=== PATIENT | male | born 1955 | race Hispanic/Latino ===

== ENCOUNTER 2018-11-11 16:50 | Inpatient (IN) ==
[2018-11-11] MEDS ORDERED: KETOROLAC 15 MG/1 ML VIAL IVP ONE (17:11)
[2018-11-11] MEDS ORDERED: DEXAMETHASONE PF 10 MG/1 ML VIAL IVP ONE (17:13)
[2018-11-11] MEDS ORDERED: diphenhydrAMINE 50 MG/1 ML VIAL IVP ONE (17:13)
[2018-11-11] MEDS ORDERED: Magnesium Sulfate 2gm (Premix) 2 GM/50 ML BAG IV ONE (17:13)
[2018-11-11] MEDS ORDERED: Prochlorperazine Edisylate Inj 10mg/2ml vial IVP ONE (17:13)
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
[2018-11-11] MEDS ORDERED: LIDOCAINE HCL 2 % 10 ML JELLY URO-JECT TOPICAL PRN (17:21)
[2018-11-11 17:22] LABS: Hematocrit [HCT] 38.6 % (42.0-52.0); Hemoglobin [HGB] 13.5 g/dL (14.0-18.0); MEAN CORPUSCULAR HEMOGLOBIN 29.7 PG (27-31); MEAN PLATELET VOLUME 9.1 FL (7.4-12.2); RED BLOOD COUNT 4.54 10^6/uL (4.70-6.10)
[2018-11-11 17:32] LABS: BLOOD UREA NITROGEN 17 mg/dL (7-22); SERUM ALBUMIN 3.8 g/dL (3.5-4.8)
[2018-11-11 17:43] LABS: VENOUS PH 7.37 (7.32-7.42)
[2018-11-11 17:45] LABS: BAND NEUTROPHILS % 7 % (0-10); BASOPHILS % (MANUAL) 0 % (0-1); EOSINOPHILS % (MANUAL) 0 % (0-8); METAMYELOCYTES % 0 %; MONOCYTES % (MANUAL) 3 % (0-12); MYELOCYTES % 0 %; NEUTROPHILS % (MANUAL) 84 % (50-80); PLATELET MORPHOLOGY COMMENT NORMAL MORPHOLOGY (NORM); PROMYELOCYTES % 0 %; RBC MORPHOLOGY COMMENT NORMAL MORPHOLOGY (NORM); WBC MORPHOLOGY COMMENT NORMAL MORPHOLOGY (NORM)
[2018-11-11 17:55] LABS: BILIRUBIN,URINE NEGATIVE (NEG); CLARITY,URINE CLEAR (CLEAR); COLOR,URINE YELLOW (Y); GLUCOSE, URINE (UA) NEGATIVE (NEG); OCCULT BLOOD,URINE SMALL (NEG); PROTEIN,URINE NEGATIVE (NEG); UROBILINOGEN,URINE 0.2 EU/dL (0.2)
[2018-11-11 17:58] LABS: BACTERIA,URINE MODERATE; URINE SAMPLE TYPE CATH SPECIMEN
[2018-11-11 18:03] LABS: Erythrocyte Sediment Rate 13 MM/HR (0-15)
[2018-11-11] MEDS ORDERED: cefTRIAXone Inj 2 GM in Sodium Chloride 0.9% 100 ML IV ONE (18:17)
--- NOTE | 2018-11-11 18:26 | DI ---
CT Head WO Contrast,11/11/2018 5:13 PM: Clinical History: Headache Previous Exam: September 01, 2013 Findings: Multiple helically acquired CT images are obtained through the brain without contrast, and demonstrat e normal, symmetric ventricles and other CSF containing spaces. There is no mass, hemorrhage or midli ne shift. Surrounding soft tissue and osseous structures are unremarkable. Impression: No acute intracranial pathology.
--- NOTE | 2018-11-11 19:01 | DI ---
AP /LATERAL CHEST, 11/11/2018 6:17 PM : Clinical History: Fever. Previous Exam: 09/01/2013. Soft Tissues: No acute soft tissue abnormality. On the AP projection, the patient took a shallow insp iration. Bones: Normal. Heart: Normal heart. Lungs: No infiltrates. Effusion(s): None. Mediastinum: Normal mediastinum. Nodules: No pulmonary nodules. Reading: Normal chest x-ray.
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
[2018-11-11] MEDS ORDERED: fentaNYL Inj 100 MCG/2 ML VIAL IVP ONE (20:15)
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
[2018-11-11] MEDS ORDERED: LIDOCAINE W/ SODIUM BICARB 0.5 ML SYR SUBD PRN (21:29)
[2018-11-11] MEDS ORDERED: DOCUSATE 100 MG CAPSULE PO PRN (21:29)
[2018-11-11] MEDS ORDERED: CARISOPRODOL 350 MG TABLET PO SCH (21:29)
[2018-11-11] MEDS ORDERED: CALCIUM CARBONATE 500 MG (TUMS) CHEWABLE TABLET PO PRN (21:29)
[2018-11-11] MEDS ORDERED: HYDROcodone-APAP 5 MG -325 MG TABLET PO PRN (21:29)
[2018-11-11] MEDS ORDERED: traMADol 50 MG TABLET PO PRN (21:29)
[2018-11-11] MEDS ORDERED: ONDANSETRON 4 MG/2 ML VIAL IVP PRN (21:29)
[2018-11-11] MEDS ORDERED: oxyCODONE/APAP 10/325 Tab 1 EACH TAB PO SCH (21:29)
[2018-11-11] MEDS: Lactated Ringers 1,000 ML PRIMARY IV SCH (22:36)
[2018-11-11] MEDS: HEPARIN 5000 UNIT/1 ML SUBCUT SCH (22:36)
[2018-11-11] MEDS: KETOROLAC 30 MG/1 ML VIAL IVP PRN (22:37)
[2018-11-11] MEDS: CITALOPRAM 20 MG TABLET PO SCH (22:38)
[2018-11-11] MEDS: LISINOPRIL 10 MG TABLET PO SCH (22:38)
[2018-11-11] MEDS: ACETAMINOPHEN 325 MG TABLET PO PRN (22:55)
[2018-11-12] MEDS: KETOROLAC 30 MG/1 ML VIAL IVP PRN ×2 (04:58→12:49)
[2018-11-12] MEDS: HEPARIN 5000 UNIT/1 ML SUBCUT SCH (04:58)
[2018-11-12 05:46] LABS: BASOPHILS # (AUTO) 0 10*3/UL; BASOPHILS % (AUTO) 0 % (0-1); EOSINOPHILS # (AUTO) 0 10*3/UL; EOSINOPHILS % (AUTO) 0 % (0-8); Hematocrit [HCT] 38.1 % (42.0-52.0); Hemoglobin [HGB] 12.9 g/dL (14.0-18.0); LYMPHOCYTES # (AUTO) 0.66 10*3/uL; MEAN CORPUSCULAR HEMOGLOBIN 28.7 PG (27-31); MEAN CORPUSCULAR HGB CONC 33.9 g/dL (33-37); MEAN CORPUSCULAR VOLUME 84.7 FL (80-90); MEAN PLATELET VOLUME 9.7 FL (7.4-12.2); MONOCYTES # (AUTO) 1.18 10*3/UL (0.3-0.8); NEUTROPHILS % (AUTO) 93.4 % (50-80)
[2018-11-12 06:14] LABS: PLATELET MORPHOLOGY COMMENT NORMAL MORPHOLOGY (NORM); RBC MORPHOLOGY COMMENT NORMAL MORPHOLOGY (NORM); WBC MORPHOLOGY COMMENT NORMAL MORPHOLOGY (NORM)
[2018-11-12 06:37] LABS: BLOOD UREA NITROGEN 24 mg/dL (7-22); BUN/CREATININE RATIO 21.81 (6-20); SERUM ALBUMIN 3.3 g/dL (3.5-4.8)
[2018-11-12] MEDS ORDERED: TAMSULOSIN 0.4 MG CAPSULE PO SCH (09:00)
[2018-11-12] MEDS ORDERED: HYDROCHLOROTHIAZIDE 12.5 MG CAPSULE PO SCH (09:00)
[2018-11-12] MEDS: CITALOPRAM 20 MG TABLET PO SCH (09:06)
[2018-11-12] MEDS: LISINOPRIL 10 MG TABLET PO SCH (09:07)
[2018-11-12] MEDS: Lactated Ringers 1,000 ML PRIMARY IV SCH (09:08)
[2018-11-12] MEDS: ACETAMINOPHEN 325 MG TABLET PO PRN (09:58)
--- NOTE | 2018-11-12 10:44 | DI ---
EXAM: CT Abdomen and Pelvis With Intravenous Contrast CLINICAL HISTORY: ITS.REASON elevated psa, elevated white blood cell count Physician Notes: Tech Comments: TECHNIQUE: Axial computed tomography images of the abdomen and pelvis with intravenous contrast. COMPARISON: CT abdomen and pelvis 03/31/17 FINDINGS: Lung bases: Mild bibasilar lung atelectasis. Mediastinum: Moderate hiatal hernia. ABDOMEN: Liver: Unremarkable. No mass. Gallbladder and bile ducts: Cholecystectomy. No ductal dilation. Pancreas: Unremarkable. No mass. No ductal dilation. Spleen: Unremarkable. No splenomegaly. Adrenals: Unremarkable. No mass. Kidneys and ureters: Mild bilateral perinephric stranding may be senescent, correlate for infection. No hydronephrosis. Stomach and bowel: Mild thickening of the small bowel, correlate for mild enteritis. No bowel obstruction. Scattered colonic diverticulosis. PELVIS: Appendix: Normal appendix. Bladder: Perdomo catheter in urinary bladder. Reproductive: Prominent prostate. Hyperdensity in the left scrotum, stable with prior study. ABDOMEN and PELVIS: Intraperitoneal space: Unremarkable. No free air. No significant fluid collection. Bones/joints: Degenerative changes of the spine. No acute fracture. No dislocation. Soft tissues: Small bilateral fat-containing inguinal hernias, greater on the right. Vasculature: Unremarkable. No abdominal aortic aneurysm. Lymph nodes: Unremarkable. No enlarged lymph nodes. IMPRESSION: 1. Prominent prostate. 2. Mild bilateral perinephric stranding may be senescent, correlate for infection. No obstructive uropathy. 3. Mild thickening of the small bowel, correlate for mild enteritis. No bowel obstruction. 4. Moderate hiatal hernia. 5. Cholecystectomy.
[2018-11-12] MEDS ORDERED: HYDROmorphone 2 MG/1 ML IVP PRN (11:36)
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
[2018-11-12 13:17] VITALS: BP 135/72; RESP 20; TEMP 98.1; O2SAT 91
[2018-11-12] MEDS ORDERED: cefTRIAXone Inj 2 GM in Sodium Chloride 0.9% 100 ML IV SCH (21:00)
== END 2018-11-12 13:35 | disposition short-term general hospital (02) | DRG 556 ==
LOC: ER 16:50 → MED/SURG 21:18
PROVIDERS: ADMIT Internal Medicine; ATTEND Internal Medicine